=== PATIENT | female | born 1990 | race Asian ===

== ENCOUNTER 2019-07-07 09:51 | Emergency (ER) | payer SELFPAY ==
[~2019-07-07] VITALS: Ht 157.5 cm; Wt 58.1 kg
[2019-07-07 10:27] VITALS: Ht 157.5 cm; Wt 58.1 kg
[2019-07-07 11:15] VITALS: BP 121/77
== END 2019-07-07 10:45 | disposition home or self-care (01) ==
LOC: ED 09:51
DX: H10.32 Unspecified acute conjunctivitis, left eye (principal); J45.909 Unspecified asthma, uncomplicated